=== PATIENT | female | born 1990 | race African-American/Black ===

== ENCOUNTER 2019-10-06 15:34 | Outpatient (CLI) | payer MEDICAID ==
[~2019-10-06] VITALS: Ht 167.6 cm; Wt 75.5 kg
--- NOTE | 2019-10-06 15:25 | NUR ---
1525- Pt arrives on unit via wheelchair from ED with complaints of SROM at approximately 1500. Pt denies cramping, UC, vaginal bleeding. +FM. EFM and TOCO on and tracing. 1526- SVE by this RN, Amniotrace inconclusive, slightly changed light green in color. Cervix closed. Peripad placed under Pt.
[2019-10-06 17:30] VITALS: BP 105/60; PULSE 80; TEMP 99.6; TEMP 99.7
--- NOTE | 2019-10-06 17:30 | NUR ---
1701- Dr Aguilar at bedside, Pt history obtained. Bedside US obtained by . 1710- Speculum exam completed by . Swabs obtained for ferning. Amniotrace positive.
[2019-10-06 18:00] VITALS: BP 105/55; PULSE 89
[2019-10-06 18:30] VITALS: BP 12/58; PULSE 91; TEMP 99.4
--- NOTE | 2019-10-06 18:30 | NUR ---
0819- Dr Aguilar at bedside, discusses positive ROM. Discusses plan to ship Pt to another facility. Questions encouraged and answered.
[2019-10-06 19:00] VITALS: BP 101/60; PULSE 90
--- NOTE | 2019-10-06 19:10 | NUR ---
IV TO INT. MESH UNDERWEAR AND PADS PROVIDED WITH HOSPITAL SOCKS. PT DOES NOT WISH TO VOID AT THIS TIME. [facility] SIGNED FOR TRANSFER 1914 [facility] REPORT 1919 PT DISCHARGED WITH EMS TO EMS
--- NOTE | 2019-10-06 19:25 | NUR ---
FERNANDO CALLED TO [facility] TRIAGE RUPALI BRADY
== END 2019-10-06 19:20 | disposition critical access hospital (66) ==
LOC: LDRO 15:34
DX: O42.912 Preterm premature rupture of membranes, unspecified as to length of time between rupture and onset of labor, second trimester (principal); Z3A.27 27 weeks gestation of pregnancy
CPT/HCPCS: J0290; J0702; J7120

== ENCOUNTER 2023-07-03 08:43 | Emergency (ER) | payer SELFPAY ==
[~2023-07-03] VITALS: Ht 167.6 cm; Wt 61.9 kg
[2023-07-03 08:50] VITALS: BP 122/77; TEMP 98.6
[2023-07-03] MEDS ORDERED: CLEOCIN HCL300 MG PO (09:07)
[2023-07-03] MEDS ORDERED: NORCO 325 MG-51 TAB PO (09:07)
[2023-07-03 09:17] VITALS: PULSE 98
== END 2023-07-03 09:16 | disposition home or self-care (01) ==
LOC: COL.ER 08:43
DX: K04.7 Periapical abscess without sinus (principal); F17.210 Nicotine dependence, cigarettes, uncomplicated; Z88.0 Allergy status to penicillin

== ENCOUNTER 2024-05-03 12:12 | Emergency (ER) | payer MEDICAID ==
[~2024-05-03] VITALS: Ht 170.2 cm; Wt 65.5 kg
[~2024-05-03 12:12] MED LIST: CLEOCIN HCL300 MG PO; NORCO 325 MG-51 TAB PO
[2024-05-03 12:25] VITALS: TEMP 98.7
[2024-05-03 14:37] LABS: PH 7.5 (5.0-8.5); URINE APPEARANCE CLEAR (CLEAR/HAZY); URINE BLOOD NEGATIVE (NEGATIVE); URINE COLOR YELLOW (YELLOW); URINE GLUCOSE NEGATIVE (NEGATIVE); URINE KETONE NEGATIVE (NEGATIVE); URINE NITRATE NEGATIVE (NEGATIVE); URINE PROTEIN(semi-quant) NEGATIVE (NEGATIVE); URINE UROBILINOGEN 0.2 E.U/dL (0.2-1.0)
[2024-05-03 14:46] LABS: COLLECTION METHOD CLEAN CATCH
[2024-05-03 15:05] VITALS: BP 107/58; PULSE 76
== END 2024-05-03 15:06 | disposition home or self-care (01) ==
LOC: COL.ER 12:12
PROVIDERS: Nurse Practitioner
DX: O26.892 Other specified pregnancy related conditions, second trimester (principal); R10.32 Left lower quadrant pain; O99.332 Smoking (tobacco) complicating pregnancy, second trimester; F17.210 Nicotine dependence, cigarettes, uncomplicated; Z3A.14 14 weeks gestation of pregnancy